=== PATIENT | male | born 1950 | race Two or more races ===

== ENCOUNTER 2016-08-07 10:09 | Emergency (ER) | payer MEDICAID ==
[~2016-08-07 10:09] MED LIST: ASPI81CH43 PO; GABA-494 PO; HYDR12.56 PO; LISI-646 PO; MELO7.5S PO; POTA10TA34 PO; TAMS0.4C36 PO; TERA5CAP42 PO
[2016-08-07 10:36] VITALS: BP 110/75
[2016-08-07] MEDS ORDERED: LIDOCAINE 1% HCL (LOCAL ANESTH.) INJ 20ML MDV ONE (10:59)
[2016-08-07] MEDS ORDERED: cefTRIAXone SOD 1,000 MG VL IM ONE (11:00)
[2016-08-07] MEDS ORDERED: TETANUS-DIPTH-ACEL PERTUSSIS 0.5ML SYRG IM ONE (11:00)
[2016-08-07] MEDS ORDERED: BACITRACIN TOP OINT 1 UD PKG TOP ONE (11:00)
== END 2016-08-07 13:02 | disposition home or self-care (01) ==
LOC: ER 10:09
DX: S63.275A Dislocation of unspecified interphalangeal joint of left ring finger, initial encounter (principal); M19.90 Unspecified osteoarthritis, unspecified site; I10 Essential (primary) hypertension; Z88.8 Allergy status to other drugs, medicaments and biological substances; S61.215A Laceration without foreign body of left ring finger without damage to nail, initial encounter; B96.89 Other specified bacterial agents as the cause of diseases classified elsewhere; W01.0XXA Fall on same level from slipping, tripping and stumbling without subsequent striking against object, initial encounter; Y93.01 Activity, walking, marching and hiking; Y99.8 Other external cause status; Y92.009 Unspecified place in unspecified non-institutional (private) residence as the place of occurrence of the external cause
CPT/HCPCS: 26770; 73140; 90471; 90715; 96372; 99284; J0696; J2001